=== PATIENT | male | born 1960 | race Caucasian/White ===

== ENCOUNTER 2020-12-01 09:33 | Emergency (ER) | payer OTHER ==
[~2020-12-01] VITALS: Ht 172.7 cm; Wt 75.0 kg
[2020-12-01] MEDS ORDERED: IBUPROFEN 600MG TABLET PO ONE (10:15)
[2020-12-01] MEDS ORDERED: LORAZEPAM 0.5MG TABLET PO ONE (10:15)
[2020-12-01] MEDS ORDERED: IBUP-2029 MT (11:04)
[2020-12-01 11:54] VITALS: BP 139/71
== END 2020-12-01 11:55 | disposition home or self-care (01) ==
LOC: ER 09:33
DX: M79.18 Myalgia, other site (principal); I49.9 Cardiac arrhythmia, unspecified
CPT/HCPCS: 93005; 99283